=== PATIENT | male | born 1995 | race American Indian/Alaskan Native ===

== ENCOUNTER 2016-04-26 16:24 | Emergency (ER) | payer SELFPAY ==
[2016-04-26 16:56] VITALS: BP 150/107
[2016-04-26] MEDS ORDERED: ZITHROMAX PO ONE (18:39)
[2016-04-26] MEDS ORDERED: ROCEPHIN IM ONE (18:39)
--- NOTE | 2016-04-26 18:40 | Emergency Department Report ---
ED Male HPI - General Chief complaint: Urogenital-Male Stated complaint: POSS STD Time Seen by Provider: 04/26/16 18:29 Source: patient Mode of arrival: Ambulatory Limitations: No Limitations - History of Present Illness Initial comments: Pt reports groin itching and penile discharge for a few days. No other symptoms. MD Complaint: penile discharge -: Gradual, days(s) (3) Location: right inguinal region, left inguinal region Radiation: none Severity: mild Improves with: none Worsens with: none discharge - Related Data Previous Rx's Medication Instructions Recorded Last Taken Type Clotrimazole [Jock Itch] 1 applicatio TP BID #60 g 04/26/16 Unknown Rx Allergies Allergy/AdvReac Type Severity Reaction Status Date / Time pollen extracts Allergy Unknown Verified 02/08/16 08:28 ED Review of Systems ROS: Stated complaint: POSS STD Other details as noted in HPI Comment: All other systems reviewed and negative Constitutional: denies: chills, fever Eyes: denies: eye pain, eye discharge, vision change ENT: denies: ear pain, throat pain Respiratory: denies: cough, shortness of breath, wheezing Cardiovascular: denies: chest pain, palpitations Endocrine: no symptoms reported Gastrointestinal: denies: abdominal pain, nausea, diarrhea Genitourinary: discharge. denies: urgency, dysuria Musculoskeletal: denies: back pain, joint swelling, arthralgia Skin: as per HPI, rash. denies: lesions Neurological: denies: headache, weakness, paresthesias Psychiatric: denies: anxiety, depression Hematological/Lymphatic: denies: easy bleeding, easy bruising ED Past Medical Hx - Social History Smoking Status: Never Smoker Substance Use Type: Alcohol, Marijuana - Medications Home Medications: Home Medications Medication Instructions Recorded Confirmed Last Taken Type Clotrimazole [Jock Itch] 1 applicatio TP BID #60 g 04/26/16 Unknown Rx ED Physical Exam - General Limitations: No Limitations General appearance: alert, in no apparent distress - Head Head exam: Present: atraumatic, normocephalic - Eye Eye exam: Present: normal appearance, PERRL, EOMI - ENT ENT exam: Present: mucous membranes moist - Neck Neck exam: Present: normal inspection - Respiratory Respiratory exam: Present: normal lung sounds bilaterally. Absent: respiratory distress - Cardiovascular Cardiovascular Exam: Present: regular rate, normal rhythm. Absent: systolic murmur, diastolic murmur, rubs, gallop - GI/Abdominal GI/Abdominal exam: Present: soft, normal bowel sounds. Absent: distended, tenderness, guarding, rebound, rigid - Rectal Rectal exam: Present: deferred - exam: Present: normal inspection. Absent: testicular tenderness, scrotal swelling External exam: Present: other (rash to bilat groin) - Extremities Exam Extremities exam: Present: normal inspection - Back Exam Back exam: Present: normal inspection - Neurological Exam Neurological exam: Present: alert, oriented X3 - Psychiatric Psychiatric exam: Present: normal affect, normal mood - Skin Skin exam: Present: warm, dry, intact, normal color. Absent: rash ED Course Vital Signs 04/26/16 16:55 Temperature 98.4 F Pulse Rate 87 Respiratory 18 Rate Blood Pressure 150/107 O2 Sat by Pulse 100 Oximetry - Reevaluation(s) Reevaluation #1: 04/26/16 18:39 NAD, stable for d/c. ED Medical Decision Making - Medical Decision Making Will treat for tinea and possible STD. - Differential Diagnosis STI, tinea Critical care attestation.: If time is entered above; I have spent that time in minutes in the direct care of this critically ill patient, excluding procedure time. ED Disposition Clinical Impression: Urethritis, Tinea cruris Disposition: DISCHARGED TO HOME OR SELFCARE Is pt being admited?: No Condition: Good Instructions: Nonspecific Urethritis in Men (ED), Jock Itch (ED) Prescriptions: Clotrimazole [Jock Itch] 1 applicatio TP BID #60 g Referrals: KATARZYNA MONTEZ MD [Staff Physician] - 3-5 Days Forms: STI Treatment and Prevention Time of Disposition: 18:40
== END 2016-04-26 18:41 | disposition home or self-care (01) ==
LOC: ED 16:24
DX: N34.2 Other urethritis (principal); B35.6 Tinea cruris; F12.10 Cannabis abuse, uncomplicated
CPT/HCPCS: 87591; 96372; 99282; J0696

== ENCOUNTER 2017-11-23 09:39 | Emergency (ER) | payer SELFPAY ==
[2017-11-23 10:51] LABS: Bilirubin,Urine NEG (Negative); Blood,Urine NEG (Negative); Color,Urine Yellow (Yellow); Mucus,Urine 2+ /HPF
[2017-11-23] MEDS ORDERED: XYLOCAINE 1% MPF 5 mL INFILTRATI ONE (11:30)
[2017-11-23] MEDS ORDERED: ROCEPHIN IM ONE (11:30)
[2017-11-23] MEDS ORDERED: ZITHROMAX PO ONE (11:30)
--- NOTE | 2017-11-23 11:35 | Emergency Department Report ---
HPI - General Chief Complaint: Urogenital-Male Time Seen by Provider: 11/23/17 11:18 - [facility] HPI: Room 39 The patient is a 22-year-old male presenting with a chief complaint of dysuria. The patient states he believes his ex-boyfriend gave him an STD. The patient states his boyfriend was diagnosed with an STD requiring treatment with "pink pills" but states the specific diagnosis is unknown. The patient states for 1- 2 weeks he's had dysuria as well as urinary frequency and intermittent suprapubic abdominal pain. Patient denies penile discharge. Location: [See above] Duration: One-2 weeks Quality: Burning Severity: Moderate Modifying factors: [see above] Context: [see above] Mode of transportation: Unknown ED Past Medical Hx - Family History Family history: no significant - Social History Smoking Status: Never Smoker Substance Use Type: Alcohol (occasional) - Medications Home Medications: Home Medications Medication Instructions Recorded Confirmed Last Taken Type Clotrimazole [Jock Itch] 1 applicatio TP BID #60 g 04/26/16 Unknown Rx Ciprofloxacin HCl [Ciprofloxacin 500 mg PO Q12H #20 tab 05/05/16 Unknown Rx TAB] Sulfamethoxazole/Trimethoprim 1 each PO BID #14 tablet 11/23/17 Unknown Rx [Bactrim DS TAB] ED Review of Systems ROS: Stated complaint: STD/CHECK UP Other details as noted in HPI Constitutional: no symptoms reported Eyes: denies: eye pain ENT: denies: throat pain Respiratory: no symptoms reported Cardiovascular: denies: chest pain Endocrine: no symptoms reported Gastrointestinal: abdominal pain Genitourinary: dysuria, frequency. denies: discharge Musculoskeletal: denies: back pain Neurological: denies: headache Physical Exam - Physical Exam Vital Signs: Vital Signs 11/23/17 10:04 Temperature 98.7 F Pulse Rate 84 Respiratory 18 Rate Blood Pressure 151/107 Physical Exam: GENERAL: The patient is well-developed well-nourished male sitting in chair not appearing to be in acute distress. [] HEENT: Normocephalic. Atraumatic. Extraocular motions are intact. Patient has moist mucous membranes. NECK: Supple. Trachea midline CHEST/LUNGS: Clear to auscultation. There is no respiratory distress noted. HEART/CARDIOVASCULAR: Regular. There is no tachycardia. There is no gallop rub or murmur. ABDOMEN: Abdomen is soft, nontender. Patient has normal bowel sounds. There is no abdominal distention. SKIN: There is no rash. There is no edema. There is no diaphoresis. NEURO: The patient is awake, alert, and oriented. The patient is cooperative. The patient has no focal neurologic deficits. The patient has normal speech and gait. MUSCULOSKELETAL: There is no evidence of acute injury. ED Course Vital Signs 11/23/17 10:04 Temperature 98.7 F Pulse Rate 84 Respiratory 18 Rate Blood Pressure 151/107 ED Medical Decision Making - Lab Data Laboratory Tests 11/23/17 10:30 Urine Color Yellow Urine Turbidity Clear Urine pH 5.0 Ur Specific [place] 1.033 H Urine Protein 30 mg/dl Urine Glucose (UA) Neg Urine Ketones Neg Urine Blood Neg Urine Nitrite Neg Urine Bilirubin Neg Urine Urobilinogen 2.0 Ur Leukocyte Esterase Neg Urine WBC (Auto) 3.0 Urine RBC (Auto) 1.0 U Epithel Cells (Auto) < 1.0 Urine Mucus 2+ - Differential Diagnosis Chlamydia, gonorrhea, UTI Critical care attestation.: If time is entered above; I have spent that time in minutes in the direct care of this critically ill patient, excluding procedure time. ED Disposition Clinical Impression: Dysuria, Exposure to STD Disposition: DC-01 TO HOME OR SELFCARE Is pt being admited?: No Does the pt Need Aspirin: No Condition: Stable Instructions: Safe Sex (ED), Sexually Transmitted Diseases (ED) Additional Instructions: Return to the emergency department immediately should you develop worsening symptoms, fever, inability to tolerate food or liquid or any other concerns. Prescriptions: Sulfamethoxazole/Trimethoprim [Bactrim DS TAB] 1 each PO BID #14 tablet Referrals: PRIMARY MD SHABNAM [Primary Care Provider] - 3-5 Days Time of Disposition: 11:36
[2017-11-23 11:56] VITALS: BP 136/76
== END 2017-11-23 11:54 | disposition home or self-care (01) ==
LOC: ED 09:39
DX: Z20.2 Contact with and (suspected) exposure to infections with a predominantly sexual mode of transmission (principal); Z91.048 Other nonmedicinal substance allergy status
CPT/HCPCS: 36415; 81001; 87086; 87591; 89050; 96372; 99283; J0696